=== PATIENT | female | born 1995 | race Caucasian/White ===

== ENCOUNTER 2017-12-10 13:57 | Emergency (ER) | payer OTHER ==
[~2017-12-10] VITALS: Ht 162.6 cm; Wt 86.2 kg
[~2017-12-10 13:57] MED LIST: BIRTH CONTROL; CENTRUM SILVER1 EAC2 PO; NAPROSYN375 MG PO
[2017-12-10 14:46] LABS: ABSOLUTE LYMPHOCYTES 1.8 thou/uL (0.8-5.3); ABSOLUTE MONOCYTES 0.4 thou/uL (0.0-1.2); ABSOLUTE NEUTROPHILS 4.8 thou/uL (1.6-8.1); BASOPHILS 0.6 %; EOSINOPHILS 0.4 %; HEMATOCRIT 42.2 % (37.0-47.0); HEMOGLOBIN 13.8 gm/dL (12.0-15.0); LYMPHOCYTES 25.5 %; MCHC 32.6 g/dL (28.0-37.0); MCV 79.7 fL (80.0-100.0); MONOCYTES 6.2 %; MPV 9.7 fl. (7.2-11.1); NUCLEATED RBCS 0 /100WBC; PLATELET COUNT* 265 thou/uL (150-400); POLYS 67.3 %; RBC 5.29 mil/uL (4.20-5.00); RDW-CV 13.2 % (10.5-14.5); WBC 7.2 thou/uL (4.0-11.0)
[2017-12-10 14:50] LABS: URINE BILIRUBIN NEGATIVE (Negative); URINE BLOOD NEGATIVE (Negative); URINE CLARITY CLEAR; URINE COLOR STRAW; URINE GLUCOSE-RANDOM NEGATIVE (Negative); URINE KETONES NEGATIVE (Negative); URINE LEUKOCYTES NEGATIVE (Negative); URINE NITRITE NEGATIVE (Negative); URINE PROTEIN NEGATIVE (Negative); URINE SPECIFIC GRAVITY <= 1.005 (1.005-1.030); URINE UROBILINOGEN 0.2 E.U./dl (0.2-1.0)
[2017-12-10 14:51] LABS: CALCIUM 9.3 mg/dL (8.5-10.1); CREATININE 0.9 mg/dL (0.6-1.3)
[2017-12-10 14:56] LABS: ALBUMIN 3.9 g/dL (3.4-5.0); TOTAL BILIRUBIN 0.8 mg/dL (<0.1-1.0); TOTAL PROTEIN 7.1 g/dL (6.4-8.2)
--- NOTE | 2017-12-10 15:56 | EKG ---
[place] [address] ELECTROCARDIOGRAM REPORT Name: CALLI HORVATH Room: 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 12/10/17 1556 1401 140 Willard Toledo MD, FAC /EPI
[2017-12-10 16:21] VITALS: BP 113/72
--- NOTE | 2017-12-12 13:04 | EKG ---
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
== END 2017-12-10 16:21 | disposition home or self-care (01) ==
LOC: M.ERS 13:57
PROVIDERS: Physician Assistant Surgical
DX: R07.9 Chest pain, unspecified (principal); Z87.891 Personal history of nicotine dependence